=== PATIENT | female | born 1995 | race African-American/Black ===

== ENCOUNTER 2024-11-19 07:20 | Inpatient (IN) | payer OTHER ==
[2024-11-19 09:22] LABS: BASO % 0.4 % (0-2.0); LYMPH % 24.9 % (8-40); MCH 28.9 pg (25.7-33.7); MCHC 33.3 g/dl (32.0-36.0); MEAN CELL VOLUME 86.8 fl (80-96); MEAN PLT VOLUME 7.9 fl (7.5-11.1); MONO % 11.6 % (3.8-10.2); NEUT % 62.1 % (42.8-82.8); PLATELET COUNT 246 10^3/uL (134-434); RBC 4.15 M/mm3 (3.60-5.2); RDW 15.5 % (11.6-15.6); WHITE BLOOD COUNT 7.4 K/mm3 (4.0-10.0)
[2024-11-19 09:28] LABS: INR 1.06 (0.83-1.09); PROTHROMBIN TIME (PATIENT) 11.6 SEC (9.7-13.0)
[2024-11-19 09:31] LABS: ACTIVATED PTT 27.8 SECONDS (25.2-36.5)
[2024-11-19 09:42] LABS: POTASSIUM 3.9 mmol/L (3.5-5.1)
[2024-11-19 09:43] LABS: CALCIUM 9.3 mg/dL (8.5-10.1)
[2024-11-19 09:44] LABS: BLOOD UREA NITROGEN 7.5 mg/dL (7-18)
[2024-11-19 09:47] LABS: CREATININE 0.5 mg/dL (0.55-1.3)
[2024-11-19] MEDS ORDERED: OXYTOCIN 30 UNITS in 0.9% NS 30 UNIT/500 ML INFUS.BAG IVPB ONE (09:56)
[2024-11-19] MEDS: ELECTROLYTE-148 SOLN 1,000 ML IV SCH (10:00)
[2024-11-19 11:15] VITALS: BMI 25.0
[2024-11-19] MEDS: OXYTOCIN 30 UNITS in 0.9% NS 30 UNIT/500 ML INFUS.BAG IVPB SCH (12:00)
[2024-11-19] MEDS ORDERED: AMPICILLIN SODIUM 2 GM VIAL ONE (12:05)
[2024-11-19] MEDS: AMPICILLIN - 2 GM in SODIUM CHLORIDE 100 ML IVPB ONE (12:14)
[2024-11-19 12:15] LABS: HIV INTERPRETATION NEGATIVE (NEGATIVE)
[2024-11-19] MEDS ORDERED: PROMETHAZINE HCL 25 MG/1 ML VIAL ONE (16:17)
[2024-11-19] MEDS ORDERED: BUTORPHANOL TARTRATE 2 MG/ML VIAL ONE (16:17)
[2024-11-19] MEDS ORDERED: AMPICILLIN SODIUM 1 GM VIAL ONE ×2 (16:18→20:28)
[2024-11-19] MEDS: AMPICILLIN - 1 GM in SODIUM CHLORIDE 100 ML IVPB SCH (16:30)
[2024-11-19] MEDS: BUTORPHANOL TARTRATE 1 MG/ML VIAL IVPB ONE (16:33)
[2024-11-19] MEDS: PROMETHAZINE HCL 25 MG/1 ML VIAL IVPB ONE (16:33)
[2024-11-19] MEDS ORDERED: FENTANYL/BUPIVACAINE/NS/PF - PCEA - 50 ML DISP.SYRIN EP ONE (20:42)
[2024-11-19] MEDS ORDERED: FENTANYL CITRATE/PF 50 MCG/ML VIAL ONE (20:47)
[2024-11-19] MEDS ORDERED: BUPIVACAINE HCL/PF 0.25% (2.5MG/ML) 10 ML VIAL ONE (20:47)
[2024-11-19] MEDS ORDERED: NALOXONE HCL 0.4 MG/ML VIAL IVPUSH PRN (21:18)
[2024-11-19] MEDS: FENTANYL/BUPIVACAINE/NS/PF - PCEA - 50 ML DISP.SYRIN EP SCH (21:30)
[2024-11-19] MEDS ORDERED: OXYTOCIN 20 UNITS in 0.9% NS 20 UNIT/1,000 ML INFUS.BAG IV ONE (23:08)
[2024-11-19] MEDS ORDERED: OXYTOCIN 20 UNITS in 0.9% NS 20 UNIT/1,000 ML INFUS.BAG IV SCH (23:45)
[2024-11-19] MEDS ORDERED: BENZOCAINE 20% 57 GM BOTTLE TP PRN (23:57)
[2024-11-19] MEDS ORDERED: METHYLERGONOVINE MALEATE 0.2 MG/1 ML AMP IM PRN (23:57)
[2024-11-19] MEDS ORDERED: ACETAMINOPHEN 325 MG TABLET (FP) PO PRN (23:57)
[2024-11-19] MEDS ORDERED: BISACODYL 10 MG SUPP.RECT RC PRN (23:57)
[2024-11-19] MEDS ORDERED: BENZOCAINE 28 GM HEMORRHOIDAL OINTMENT TP PRN (23:57)
[2024-11-19] MEDS ORDERED: WITCH HAZEL 50% (TUCKS) 40 PAD/JAR PAD TP PRN (23:57)
[2024-11-19] MEDS ORDERED: oxyCODONE HCL 5 MG TABLET PO PRN (23:57)
[2024-11-20 06:57] LABS: BASO % 0.2 % (0-2.0); EOS % 0.1 % (0-4.5); HEMATOCRIT 36.4 % (32.4-45.2); HEMOGLOBIN 11.6 GM/dL (10.7-15.3); LYMPH % 14.9 % (8-40); MCH 28.1 pg (25.7-33.7); MCHC 31.8 g/dl (32.0-36.0); MEAN CELL VOLUME 88.4 fl (80-96); MEAN PLT VOLUME 8.3 fl (7.5-11.1); MONO % 11.4 % (3.8-10.2); NEUT % 73.4 % (42.8-82.8); PLATELET COUNT 261 10^3/uL (134-434); RBC 4.12 M/mm3 (3.60-5.2); RDW 15.7 % (11.6-15.6); WHITE BLOOD COUNT 16.2 K/mm3 (4.0-10.0)
[2024-11-20] MEDS: PRENATAL VITAMINS W/ FOLIC ACID TABLET (FP) PO SCH (09:32)
[2024-11-20] MEDS: FERROUS SO4 325 MG TABLET (FP) PO SCH (09:32)
[2024-11-20] MEDS: IBUPROFEN 600 MG TABLET (FP) PO PRN (10:22)
[2024-11-21 08:38] VITALS: BP 100/71; PULSE 81; RESP 17; TEMP 97.8
[2024-11-21] MEDS: SENNOSIDES/DOCUSATE COMBO (SENNA PLUS) TABLET (UD) PO PRN (09:25)
== END 2024-11-21 19:13 | disposition home or self-care (01) | DRG 560 ==
LOC: JLDR 07:20 → J3W 11-20 02:29
PROVIDERS: ADMIT Obstetrics & Gynecology; ATTEND Obstetrics & Gynecology
PROC: 0HQ9XZZ Repair Perineum Skin, External Approach (ICD-10-PCS; principal; 2024-11-19)
PROC: 10E0XZZ Delivery of Products of Conception, External Approach (ICD-10-PCS; 2024-11-19)
DX: O48.0 Post-term pregnancy (principal); Z3A.40 40 weeks gestation of pregnancy; O70.0 First degree perineal laceration during delivery; Z37.0 Single live birth
CPT/HCPCS: 36415; 59409; 80048; 85025; 85610; 85730; 86780; 86803; 86850; 86900; 86901; 87389